=== PATIENT | male | born 1980 | race Caucasian/White ===

== ENCOUNTER 2020-04-24 10:26 | Day surgery (SDCO) | payer OTHER ==
[2020-04-24 12:11] LABS: BASOPHIL 0.6 % (0-2); HCT 49.1 % (42.0-52.0); HGB 16.8 g/dl (13.2-18.0); LYMPHOCYTE 13.6 % (15-48); MCH 29.3 pg (25.0-31.0); MCHC 34.2 g/dL (32.0-36.0); MCV 85.7 fL (78.0-100.0); MONOCYTE 7.5 % (0-12); MPV 9.4 fL (6.0-9.5); NEUTROPHIL 75.8 % (41-80); NRBC 0; PLT 328 K/uL (150-400); RBC 5.73 M/uL (4.70-6.00); RDW 11.9 % (11.5-14.0); WBC 12.9 K/uL (4.0-10.5)
[2020-04-24 12:25] LABS: BUN/CREAT RATIO (CALC) 28.3 RATIO; CREATININE 0.92 mg/dL (0.67-1.17); POTASSIUM 4.5 mmol/L (3.5-5.1)
[2020-04-24 14:46] LABS: LACTIC ACID 1.2 mmol/L (0.4-1.9)
[2020-04-25 06:30] LABS: BASOPHIL 0.7 % (0-2); EOSINOPHIL 4.8 % (0-5); HGB 14.3 g/dl (13.2-18.0); LYMPHOCYTE 27.7 % (15-48); MCH 29.5 pg (25.0-31.0); MCV 86.6 fL (78.0-100.0); MONOCYTE 8.2 % (0-12); MPV 9.6 fL (6.0-9.5); NEUTROPHIL 57.9 % (41-80); NRBC 0; PLT 284 K/uL (150-400); RBC 4.85 M/uL (4.70-6.00); RDW 11.9 % (11.5-14.0); WBC 10.1 K/uL (4.0-10.5)
[2020-04-25 07:04] LABS: BUN/CREAT RATIO (CALC) 26.2 RATIO; CREATININE 0.8 mg/dL (0.67-1.17); POTASSIUM 4.1 mmol/L (3.5-5.1)
[2020-04-26] MEDS ORDERED: METFORMIN HCL500 MG PO (08:21)
[2020-04-26] MEDS ORDERED: CLEOCIN300 MG PO ×2 (08:21→14:56)
[2020-04-26] MEDS ORDERED: BACTRIM DS TAB1 EACH PO ×2 (08:21→14:56)
[2020-04-26] MEDS ORDERED: HUMULIN 70100 UNIT/1 SC (08:21)
--- NOTE | 2020-04-26 13:12 | NUR ---
04/26 Mr. Camara shares a home with a roommate. Referrals have been made to [facility] for a Wound Vac and [facility] HH per patient choice; affliations explained. Report given to MS emili Crespo RN.
--- NOTE | 2020-04-26 17:34 | NUR ---
WOUND VAC IN PLACE, AND SEALED
[2020-04-27] MEDS ORDERED: HUMULIN 70100 UNIT/1 SC (13:04)
== END 2020-04-26 17:33 | disposition home health service (06) ==
LOC: FER 10:26 → FMS 13:14
PROVIDERS: Emergency Medicine; ADMIT Allergy & Immunology Allergy
DX: L03.313 Cellulitis of chest wall (principal); B95.61 Methicillin susceptible Staphylococcus aureus infection as the cause of diseases classified elsewhere; E11.622 Type 2 diabetes mellitus with other skin ulcer; L98.499 Non-pressure chronic ulcer of skin of other sites with unspecified severity; Z86.14 Personal history of Methicillin resistant Staphylococcus aureus infection; Z86.718 Personal history of other venous thrombosis and embolism; Z87.891 Personal history of nicotine dependence; Z79.4 Long term (current) use of insulin; Z79.899 Other long term (current) drug therapy; Z20.822 Contact with and (suspected) exposure to COVID-19
CPT/HCPCS: 36415; 80048; 80061; 80202; 82962; 83036; 83605; 85025; 87040; 87070; 87077; 87186; 87205; 96365; G0378; J0696; J1650; J1885; J2250; J2405; J2704; J3010; J3370; J7030; J7050; J7120; U0002